=== PATIENT | male | born 1990 ===

== ENCOUNTER 2019-07-23 20:08 | Emergency (ER) | payer OTHER ==
[2019-07-23] MEDS ORDERED: Morphine 4 MG/ML Syringe IVPUSH ONE (20:16)
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
[2019-07-23] MEDS ORDERED: Ondansetron 4 MG/2 ML SDV IVPUSH ONE (20:17)
--- NOTE | 2019-07-23 21:01 | CR ---
Lumbar spine: AP and lateral views lumbar spine were obtained as well as coned-down lateral view centered to the lumbosacral junction. Comparison: No prior lumbar spine imaging. Vertebral body heights and disc spaces are maintained. Pedicles are intact. Transverse and spinous processes are intact. No subluxation or fracture is appreciated. Visualized bowel gas is normal. Impression: 1. Nothing acute is appreciated on three-view lumbar spine study. Diagnostic code #1 This report was dictated in [place] Standard Time
--- NOTE | 2019-07-23 21:01 | CR ---
Thoracic spine: AP and lateral views of the thoracic spine were obtained. Mild anterior wedging of 2 lower thoracic vertebral bodies are seen which likely are acute. Other vertebral body heights are maintained. Pedicles are intact. Mild scoliosis is noted. No subluxation is seen. Impression: 1. Mild anterior wedging of 2 lower thoracic vertebral bodies which are felt to represent acute compression fractures. 2. Minimal scoliosis. No additional abnormality is appreciated. Diagnostic code #5 This report was dictated in [place] Standard Time
== END 2019-07-23 21:55 | disposition home or self-care (01) ==
LOC: MW.ED 20:08
DX: S22.000A Wedge compression fracture of unspecified thoracic vertebra, initial encounter for closed fracture (principal); F17.200 Nicotine dependence, unspecified, uncomplicated; Z79.899 Other long term (current) drug therapy; V49.9XXA Car occupant (driver) (passenger) injured in unspecified traffic accident, initial encounter
CPT/HCPCS: 72070; 72100; 96374; 96375; 99284; J2270; J2405

== ENCOUNTER 2024-10-03 09:47 | Emergency (ER) | payer BC, OTHER ==
[2024-10-03] MEDS: Morphine 4 MG/ML Syringe IVPUSH ONE (10:38)
[2024-10-03] MEDS: Sodium Chloride 0.9% 1,000 ML IV ONE (10:39)
[2024-10-03] MEDS: Ondansetron 4 MG/2 ML SDV IVPUSH ONE (10:39)
[2024-10-03 10:42] LABS: BASOPHILS ABSOLUTE AUTO 0.07 K/uL (0.00-0.20); BASOPHILS PERCENT AUTO 0.7 % (0.0-1.0); EOSINOPHILS ABSOLUTE AUTO 0.45 K/uL (0.00-0.45); EOSINOPHILS PERCENT AUTO 4.7 % (0.0-6.0); HEMATOCRIT 44.6 % (42.0-52.0); HEMOGLOBIN 15.5 g/dL (14.0-18.0); IMMATURE GRAN ABSOLUTE AUTO 0.03 K/uL (0.00-0.05); IMMATURE GRAN PERCENT AUTO 0.3 % (0.0-0.4); LYMPHOCYTES ABSOLUTE AUTO 1.02 K/uL (1.00-4.80); LYMPHOCYTES PERCENT AUTO 10.6 % (24.0-44.0); MEAN CORPUSCULAR HGB CONC 34.8 g/dL (32.0-36.0); MEAN CORPUSCULAR VOLUME 86.3 fL (83.0-99.0); MONOCYTES ABSOLUTE AUTO 0.42 K/uL (0.00-0.80); MONOCYTES PERCENT AUTO 4.4 % (0.0-8.0); NEUTROPHILS ABSOLUTE AUTO 7.61 K/uL (1.80-7.70); NEUTROPHILS PERCENT AUTO 79.3 % (41.0-71.0); PLATELET COUNT,PLT 242 K/uL (150-400); RED BLOOD CELL COUNT 5.17 M/uL (4.52-5.90)
[2024-10-03] MEDS: Iopamidol 755 MG/ML 500 ML Multipack Bottle IVPUSH STA (11:07)
[2024-10-03 11:09] LABS: A/G RATIO 1.3 (0.9-1.6); ALBUMIN 4.2 g/dL (3.4-5.0); BILIRUBIN TOTAL 0.7 mg/dL (0.2-1.0); CALCIUM 8.7 mg/dL (8.5-10.1); CARBON DIOXIDE,CO2 27.1 mmol/L (21.0-32.0); CREATININE 1.1 mg/dL (0.8-1.3); EST CRCL DRUG DOSING (CG) 94.62 mL/min; POTASSIUM,K 4.4 mmol/L (3.5-5.1); PROTEIN TOTAL,TP 7.4 g/dL (6.4-8.2)
[2024-10-03 11:44] LABS: APPEARANCE,URINE CLEAR; BILIRUBIN,URINE NEGATIVE (NEGATIVE); COLOR,URINE YELLOW; GLUCOSE,URINE NEGATIVE (NEGATIVE); KETONES,URINE NEGATIVE (NEGATIVE); LEUKOCYTE ESTERASE,URINE NEGATIVE (NEGATIVE); NITRITE,URINE NEGATIVE (NEGATIVE); OCCULT BLOOD,URINE NEGATIVE (NEGATIVE); PH,URINE 7.5 (5.0-8.0); PROTEIN,URINE NEGATIVE (NEGATIVE); UROBILINOGEN,URINE 0.2 EU/dL (<2.0)
== END 2024-10-03 12:11 | disposition home or self-care (01) ==
LOC: MW.ED 09:47
DX: K52.9 Noninfective gastroenteritis and colitis, unspecified (principal); Z75.3 Unavailability and inaccessibility of health-care facilities
CPT/HCPCS: 36415; 74177; 80053; 81003; 83690; 85025; 96361; 96374; 96375; 99284; J2405; J7030; Q9967; 99283